=== PATIENT | male | born 1950 | race African-American/Black ===

== ENCOUNTER 2018-06-07 21:42 | Inpatient (IN) ==
[2018-06-07 22:22] LABS: Basophils % 0.4 % (0.0-0.8); Eosinophils # 0.1 10*3/uL (0.0-0.87); Eosinophils % 0.7 % (0.00-10.9); Hematocrit 39.7 VOL% (42.0-52.0); Hemoglobin 13.2 GM/DL (14.0-18.0); Immature Granulocytes % 0.7 %; Immature Granulocytes Absolute 0.06 #; Lymphocytes # 1.7 10*3/uL (1.4-4.0); Lymphocytes % 18.6 % (21.2-54.2); Mean Corpuscular HGB Conc 33.2 GM/DL (32-36); Mean Corpuscular Hemoglobin 30 PG (27-34); Mean Corpuscular Volume 90.8 FL (87-102); Mean Platelet Volume 8.7 FL (9.6-12.0); Monocytes # 0.5 10*3/uL (0.11-0.8); Monocytes % 6.1 % (1.7-12.7); Neutrophils # 6.5 10*3/uL (1.4-7.4); Neutrophils % 73.5 % (38.7-73.9); Platelet Count 448 T/CUMM (130-400); Red Blood Count 4.37 MC/CUMM (3.8-5.5); Red Cell Distribution Width 13.5 % (9.3-17.3); White Blood Count 8.9 T/CUMM (4-12)
[2018-06-07 22:34] LABS: Alanine Aminotransferase < 9 U/L (16-61); Albumin 1.6 G/DL (3.4-5.0); Alkaline Phosphatase 97 U/L (45-117); Aspartate Amino Transferase 31 U/L (0-37); Bilirubin,Total < 0.39 MG/DL (0.2-1.0); Blood Urea Nitrogen 44 MG/DL (7-18); Calcium 8.6 MG/DL (8.5-10.1); Glucose 164 MG/DL (74-106); Osmolality,Calculated 289.7 MOS/KG (273-304); Potassium 2.8 MMOL/L (3.5-5.1); Sodium 138 MMOL/L (136-145); Total Protein 6.2 G/DL (6.4-8.3)
[2018-06-07] MEDS ORDERED: MORPHINE 4 MG/1 ML VIAL IV STA ×2 (23:05→23:39)
[2018-06-07] MEDS ORDERED: ONDANSETRON 4 MG/2 ML VIAL IV STA (23:05)
[2018-06-08] MEDS ORDERED: VANCOMYCIN INJ 1,000 MG in SODIUM CHLORIDE 0.9% 250 ML IV STA (00:51)
[2018-06-08] MEDS ORDERED: GENTAMICIN INJ 80 MG in SODIUM CHLORIDE 0.9% 100 ML IV STA (00:51)
[2018-06-08] MEDS ORDERED: GENTAMICIN 80 MG/2 ML VIAL ONE (00:54)
[2018-06-08] MEDS ORDERED: ONDANSETRON 4 MG/2 ML VIAL IV PRN (02:59)
[2018-06-08] MEDS ORDERED: DICLOFENAC 1% GEL 100 GM TUBE TOP PRN (02:59)
[2018-06-08] MEDS ORDERED: ALPRAZolam 0.5 MG TABLET PO PRN (02:59)
[2018-06-08] MEDS ORDERED: POTASSIUM CHLORIDE 20 MEQ TABLET PO ONE (03:30)
[2018-06-08 05:33] LABS: Basophils % 0.4 % (0.0-0.8); Eosinophils # 0.1 10*3/uL (0.0-0.87); Eosinophils % 0.8 % (0.00-10.9); Hematocrit 37.1 VOL% (42.0-52.0); Hemoglobin 12.1 GM/DL (14.0-18.0); Immature Granulocytes % 0.6 %; Immature Granulocytes Absolute 0.05 #; Lymphocytes # 1.9 10*3/uL (1.4-4.0); Lymphocytes % 22.4 % (21.2-54.2); Mean Corpuscular HGB Conc 32.6 GM/DL (32-36); Mean Corpuscular Hemoglobin 30 PG (27-34); Mean Corpuscular Volume 90.5 FL (87-102); Mean Platelet Volume 8.7 FL (9.6-12.0); Monocytes # 0.7 10*3/uL (0.11-0.8); Monocytes % 8.2 % (1.7-12.7); Neutrophils # 5.8 10*3/uL (1.4-7.4); Neutrophils % 67.6 % (38.7-73.9); Platelet Count 408 T/CUMM (130-400); Red Cell Distribution Width 13.6 % (9.3-17.3); White Blood Count 8.5 T/CUMM (4-12)
[2018-06-08 05:35] LABS: Calcium 7.9 MG/DL (8.5-10.1); Osmolality,Calculated 289.5 MOS/KG (273-304); Potassium 2.8 MMOL/L (3.5-5.1)
[2018-06-08] MEDS: HYDROmorphone 2 MG/1 ML VIAL IV PRN ×2 (08:12→15:52)
[2018-06-08] MEDS: CALCITRIOL 0.25 MCG CAPSULE PO SCH (09:26)
[2018-06-08] MEDS: PANTOPRAZOLE 40 MG TABLET PO SCH ×2 (09:27→21:51)
[2018-06-08] MEDS: amLODIPine 10 MG TABLET PO SCH (09:41)
[2018-06-08] MEDS ORDERED: BISACODYL 5 MG TABLET PO PRN (10:10)
[2018-06-08] MEDS: POLYETHYLENE GLYCOL POWDER 17 GM PACK PO SCH (10:41)
[2018-06-08] MEDS: POTASSIUM CHLORIDE 20 MEQ TABLET PO SCH ×2 (10:42→21:52)
[2018-06-08] MEDS ORDERED: VANCOMYCIN INJ 750 MG in SODIUM CHLORIDE 0.9% 250 ML IV PRN (16:24)
[2018-06-08] MEDS ORDERED: GENTAMICIN INJ 100 MG in PREMIX 1 EACH IV PRN (16:29)
[2018-06-08] MEDS: risperiDONE 0.5 MG TABLET PO SCH (21:51)
[2018-06-08] MEDS: traZODone 50 MG TABLET PO SCH (21:51)
[2018-06-08] MEDS: PRAVASTATIN 40 MG TABLET PO SCH (21:52)
[2018-06-08] MEDS: AMITRIPTYLINE 25 MG TABLET PO SCH (21:52)
[2018-06-09] MEDS: HYDROmorphone 2 MG/1 ML VIAL IV PRN ×4 (01:05→23:55)
[2018-06-09] MEDS: CALCITRIOL 0.25 MCG CAPSULE PO SCH (09:38)
[2018-06-09] MEDS: amLODIPine 10 MG TABLET PO SCH (09:38)
[2018-06-09] MEDS: POTASSIUM CHLORIDE 20 MEQ TABLET PO SCH ×2 (09:38→21:46)
[2018-06-09] MEDS: PANTOPRAZOLE 40 MG TABLET PO SCH ×2 (09:38→21:46)
[2018-06-09] MEDS: POLYETHYLENE GLYCOL POWDER 17 GM PACK PO SCH (09:38)
[2018-06-09] MEDS ORDERED: BISACODYL 10 MG SUPP RECTAL ONE (09:54)
[2018-06-09] MEDS ORDERED: LACTULOSE 20 GM/30 ML UDCUP PO ONE (09:54)
[2018-06-09] MEDS ORDERED: VANCOMYCIN INJ 1,250 MG in SODIUM CHLORIDE 0.9% 250 ML IV PRN (12:30)
[2018-06-09] MEDS: METOCLOPRAMIDE 10 MG/2 ML VIAL IV SCH ×2 (13:12→17:44)
[2018-06-09] MEDS ORDERED: GENTAMICIN INJ 160 MG in SODIUM CHLORIDE 0.9% 100 ML IV PRN (17:00)
[2018-06-09] MEDS ORDERED: HEPARIN 10,000 UNIT/10 ML VIAL INTRAPERIT PRN (18:57)
[2018-06-09] MEDS ORDERED: GENTAMICIN INJ 160 MG in SODIUM CHLORIDE 0.9% 100 ML IV ONE (21:00)
[2018-06-09] MEDS ORDERED: VANCOMYCIN INJ 1,250 MG in SODIUM CHLORIDE 0.9% 250 ML IV ONE (21:00)
[2018-06-09] MEDS: risperiDONE 0.5 MG TABLET PO SCH (21:46)
[2018-06-09] MEDS: traZODone 50 MG TABLET PO SCH (21:46)
[2018-06-09] MEDS: AMITRIPTYLINE 25 MG TABLET PO SCH (21:46)
[2018-06-09] MEDS: PRAVASTATIN 40 MG TABLET PO SCH (21:47)
[2018-06-10] MEDS: METOCLOPRAMIDE 10 MG/2 ML VIAL IV SCH ×5 (00:40→23:02)
[2018-06-10 05:36] LABS: Calcium 8.9 MG/DL (8.5-10.1); Osmolality,Calculated 288.7 MOS/KG (273-304); Potassium 3.7 MMOL/L (3.5-5.1)
[2018-06-10] MEDS: CALCITRIOL 0.25 MCG CAPSULE PO SCH (09:15)
[2018-06-10] MEDS: POTASSIUM CHLORIDE 20 MEQ TABLET PO SCH ×2 (09:15→21:39)
[2018-06-10] MEDS: POLYETHYLENE GLYCOL POWDER 17 GM PACK PO SCH (09:15)
[2018-06-10] MEDS: amLODIPine 10 MG TABLET PO SCH (09:15)
[2018-06-10] MEDS: PANTOPRAZOLE 40 MG TABLET PO SCH ×2 (09:15→21:39)
[2018-06-10] MEDS: HYDROmorphone 2 MG/1 ML VIAL IV PRN ×2 (09:26→15:08)
[2018-06-10] MEDS: HEPARIN 10,000 UNIT/10 ML VIAL INTRAPERIT SCH (19:10)
[2018-06-10] MEDS: PRAVASTATIN 40 MG TABLET PO SCH (21:39)
[2018-06-10] MEDS: AMITRIPTYLINE 25 MG TABLET PO SCH (21:39)
[2018-06-10] MEDS: risperiDONE 0.5 MG TABLET PO SCH (21:39)
[2018-06-10] MEDS: SODIUM PHOSPHATE ENEMA 133 ML BOTTLE RECTAL PRN (21:40)
[2018-06-10] MEDS: traZODone 50 MG TABLET PO SCH (22:12)
[2018-06-10] MEDS: ALUMINUM/MAGNES/SIMETH MAX STR 30 ML UDCUP PO PRN (22:56)
[2018-06-11] MEDS: HEPARIN 10,000 UNIT/10 ML VIAL INTRAPERIT SCH ×4 (00:30→17:33)
[2018-06-11] MEDS: ALUMINUM/MAGNES/SIMETH MAX STR 30 ML UDCUP PO PRN ×2 (05:00→12:59)
[2018-06-11] MEDS: METOCLOPRAMIDE 10 MG/2 ML VIAL IV SCH ×4 (05:23→17:31)
[2018-06-11] MEDS: HYDROmorphone 2 MG/1 ML VIAL IV PRN ×2 (05:41→13:21)
[2018-06-11] MEDS: SODIUM PHOSPHATE ENEMA 133 ML BOTTLE RECTAL PRN (06:00)
[2018-06-11] MEDS: amLODIPine 10 MG TABLET PO SCH (09:00)
[2018-06-11] MEDS: CALCITRIOL 0.25 MCG CAPSULE PO SCH (09:05)
[2018-06-11] MEDS: PANTOPRAZOLE 40 MG TABLET PO SCH ×2 (09:05→20:38)
[2018-06-11] MEDS: POTASSIUM CHLORIDE 20 MEQ TABLET PO SCH ×2 (09:05→20:39)
[2018-06-11] MEDS: POLYETHYLENE GLYCOL POWDER 17 GM PACK PO SCH (09:05)
[2018-06-11] MEDS ORDERED: GENTAMICIN INJ 160 MG in SODIUM CHLORIDE 0.9% 100 ML IV ONE ×2 (10:00→12:00)
[2018-06-11] MEDS ORDERED: ALUMINUM/MAGNES/SIMETH MAX STR 30 ML UDCUP PO PRN (12:54)
[2018-06-11] MEDS: AZITHROMYCIN INJ 250 MG in SODIUM CHLORIDE 0.9% 250 ML IV SCH (14:24)
[2018-06-11] MEDS: PRAVASTATIN 40 MG TABLET PO SCH (20:38)
[2018-06-11] MEDS: traZODone 50 MG TABLET PO SCH (20:38)
[2018-06-11] MEDS: risperiDONE 0.5 MG TABLET PO SCH (20:39)
[2018-06-11] MEDS: AMITRIPTYLINE 25 MG TABLET PO SCH (20:39)
[2018-06-11] MEDS ORDERED: VANCOMYCIN 1,000 MG VIAL INTRAPERIT ONE (23:00)
[2018-06-12] MEDS: HEPARIN 10,000 UNIT/10 ML VIAL INTRAPERIT SCH ×4 (00:29→19:46)
[2018-06-12] MEDS: METOCLOPRAMIDE 10 MG/2 ML VIAL IV SCH ×4 (00:31→19:38)
[2018-06-12] MEDS: HYDROmorphone 2 MG/1 ML VIAL IV PRN ×2 (00:32→09:38)
[2018-06-12] MEDS ORDERED: VANCOMYCIN INJ 1,250 MG in SODIUM CHLORIDE 0.9% 250 ML IV ONE (08:00)
[2018-06-12] MEDS: amLODIPine 10 MG TABLET PO SCH (09:38)
[2018-06-12] MEDS: PANTOPRAZOLE 40 MG TABLET PO SCH ×2 (09:38→21:23)
[2018-06-12] MEDS: CALCITRIOL 0.25 MCG CAPSULE PO SCH (09:38)
[2018-06-12] MEDS: POTASSIUM CHLORIDE 20 MEQ TABLET PO SCH ×2 (09:38→21:24)
[2018-06-12] MEDS: POLYETHYLENE GLYCOL POWDER 17 GM PACK PO SCH (11:11)
[2018-06-12] MEDS: AZITHROMYCIN INJ 250 MG in SODIUM CHLORIDE 0.9% 250 ML IV SCH (11:56)
[2018-06-12] MEDS: traZODone 50 MG TABLET PO SCH (21:23)
[2018-06-12] MEDS: AMITRIPTYLINE 25 MG TABLET PO SCH (21:24)
[2018-06-12] MEDS: risperiDONE 0.5 MG TABLET PO SCH (21:24)
[2018-06-12] MEDS: PRAVASTATIN 40 MG TABLET PO SCH (21:24)
[2018-06-13] MEDS: HEPARIN 10,000 UNIT/10 ML VIAL INTRAPERIT SCH ×3 (02:24→13:57)
[2018-06-13] MEDS: METOCLOPRAMIDE 10 MG/2 ML VIAL IV SCH ×3 (02:50→13:57)
[2018-06-13] MEDS: CALCITRIOL 0.25 MCG CAPSULE PO SCH (08:59)
[2018-06-13] MEDS: amLODIPine 10 MG TABLET PO SCH (08:59)
[2018-06-13] MEDS: POTASSIUM CHLORIDE 20 MEQ TABLET PO SCH (08:59)
[2018-06-13] MEDS: PANTOPRAZOLE 40 MG TABLET PO SCH (08:59)
[2018-06-13] MEDS: POLYETHYLENE GLYCOL POWDER 17 GM PACK PO SCH (09:00)
[2018-06-13] MEDS: AZITHROMYCIN INJ 250 MG in SODIUM CHLORIDE 0.9% 250 ML IV SCH (10:45)
[2018-06-13 12:31] VITALS: BP 133/79
== END 2018-06-13 13:13 | disposition home or self-care (01) | DRG 919 ==
LOC: EDBD → EDUNIT# → N.ED 21:42 → N.EDINP 06-08 01:32 → N.5E 06-08 02:26
PROVIDERS: ADMIT Internal Medicine; ATTEND Internal Medicine